=== PATIENT | male | born 1935 | race Caucasian/White ===

== ENCOUNTER 2016-08-21 19:45 | Emergency (ER) | payer MEDICARE ==
[~2016-08-21] VITALS: Ht 182.9 cm; Wt 95.5 kg
[~2016-08-21 19:45] MED LIST: NAPR220C11 PO; TRAV5DRO BOTH_EYES
[2016-08-21 19:47] VITALS: BP 150/85; PULSE 83; RESP 16; O2SAT 100
--- NOTE | 2016-08-21 20:50 | ED.REPORT ---
HPI-General Illness Date of Service Aug 21, 2016 ED Provider: Dr. Mark Morris MD An 80 year old male with a previous history of prostate cancer s/p prostatectomy and kidney stones presents to the ED with multiple medical complaints. The patient's reports that he has been experiencing nausea, forgetfulness, abdominal pain, general malaise, chest/shoulder discomfort and dysuria that began a few weeks ago. The discomfort inbetween the patient's shoulder's radiates to his flank. Patient also reports dry heaving but denies any episodes of vomiting. He is currently taking Doxycycline for his dysuria. Nursing Notes Stated Complaint: CHEST PAIN/ SOB Chief Complaint: General Complaint Nursing Notes Reviewed: Yes Allergies: Coded Allergies: Penicillins (Verified Allergy, Severe, RASH (AMOXICILLIN), 03/21/16) Sulfa (Sulfonamide Antibiotics) (Verified Allergy, Severe, rash, 03/21/16) clindamycin (Verified Allergy, Severe, rash, 03/21/16) dexamethasone (Verified Allergy, Severe, RASH, 03/21/16) risperidone (Verified Allergy, Severe, chest pain and anxiety, 03/21/16) NSAIDS (Non-Steroidal Anti-Inflamma (Unverified Allergy, Unknown, unknown (opth/otic soln), 03/21/16) ciprofloxacin (Verified Allergy, Unknown, UNKNOWN, 03/21/16) meperidine (Verified Allergy, Unknown, UNKNOWN, 03/21/16) morphine (Verified Allergy, Unknown, UNKNOWN, 03/21/16) Scheduled Travoprost (Travatan Z) 5 Ml Drops 1-2 GTTS BOTH_EYES DAILY Scheduled PRN Naproxen Sodium (Aleve) 220 Mg Capsule 2 CAP PO DAILY PRN PRN PRN General Time Seen by MD: 20:50 Chief Complaint Multip medical complaints Hx Obtained From: Patient, Spouse Arrived By: Walk-in Sudden in Onset?: No Onset Occurred: 21 - 23 hours ago Symptom Duration: Since onset Location: : Shoulder left: Shoulder right Quality: Painful Radiation: : Back (Flank ) Severity: Current: No pain currently Severity: Maximum: Mild Associated with: Reports: Abdominal pain, Chest pain (chest discomfort ), Nausea, Denies: Vomiting Pertinent Negative: Pt denies other symptoms Recent Healthcare: No recent doctor visit, No recent hospitalization Past Medical History Past Medical History Prostate cancer s/p prostatectomy Urinary incontinence PE 2003 Kidney stones Past Surgical History Bilat CTR Right total shoulder replacement Bladder stone removal Reports: Cholecystectomy, Prostatectomy Family History Noncontributory Smoking History Former Smoker Social History Alcohol Use: 1-3 per day Drug Use: Denies drug use Other Social History: Smokeless tobacco, Good social support, , Local resident Ambulatory Status Independent Review of Systems Full Review of Systems Constitutional: Reports: Malaise, Denies: Chills, Fever Respiratory: Denies: Shortness of breath Cardiovascular: Reports: Chest pain (Chest discomfort ) GI: Reports: Abdominal pain, Nausea, Denies: Vomiting Male: Reports Flank pain (Pain that radiates to flank) Musculoskeletal: Reports: Joint pain (Bilateral shoulder discomfort ) Neurologic: Denies: Change LOC Complete sys rev & neg: except as marked. Physical Exam Vital Signs Vital Signs Date Time Temp Pulse Resp B/P Pulse Ox O2 Delivery O2 Flow Rate FiO2 08/22/16 00:11 58 18 118/59 95 Room Air 08/21/16 19:47 36.4 83 16 150/85 100 Room Air Initial VS: Reviewed Neck: Supple, Non-tender, Full range of motion Extremities: Vascular intact, Neuro intact, No swelling, No tenderness Skin: Warm, Dry, No cyanosis Neurologic: Alert, Oriented, Nonfocal Psychiatric: Mood/affect normal, Behavior normal, Normal thought content General/Constitutional: Awake, Alert Head / Eyes: Atraumatic, Normocephalic ENT: Atraumatic, Airway patent Mouth: Positive: Mucous membranes dry Respiratory / Chest: Atraumatic, Breath sounds NL, Breath sounds = bilat Cardiovascular: Heart rate NL, Regular rhythm, Heart sounds NL Abdomen: Atraumatic, Soft, Non-tender ABDOMEN: Obese Interpretation & Diagnostics Lab Results Interpretation Result Diagram: 08/21/16213908/21/162139 Test 08/21/16 21:40 White Blood Count 6.7th/mm3 (3.8-10.1) Red Blood Count 4.33mil/mm3 (4.40-5.80) Hemoglobin 12.0g/dL (13.8-17.2) Hematocrit 36.0% (41.0-50.0) Mean Corpuscular Volume 83.1fL (81-100) Mean Corpuscular Hemoglobin 27.7pg (27.0-35.0) Mean Corpuscular Hemoglobin Concent 33.3% (32.0-37.0) Red Cell Distribution Width 13.8% (12.3-15.4) Platelet Count 349bil/L (150-400) Neutrophils (%) (Auto) 79.4% (40-74) Lymphocytes (%) (Auto) 12.8% (14-46) Monocytes (%) (Auto) 5.2% (4-12) Eosinophils (%) (Auto) 1.9% (0-5) Basophils (%) (Auto) 0.6% (0-3) Prothrombin Time 10.4sec (8.1-12.5) Prothromb Time International Ratio 0.97ratio Activated Partial Thromboplast Time 26.2sec (22.8-33.0) Sodium Level 137mEq/L (134-144) Potassium Level 4.3mEq/L (3.5-5.2) Chloride Level 99mEq/L (97-108) Carbon Dioxide Level 25mmol/L (18-29) Blood Urea Nitrogen 14mg/dL (8-27) Creatinine 0.87mg/dL (0.76-1.27) Estimat Glomerular Filtration Rate 90mL/min (>59) Glucose Level 108mg/dL (60-99) Calcium Level 9.1mg/dL (8.5-10.1) Magnesium Level 1.9mg/dL (1.6-2.6) Total Bilirubin 0.2mg/dL (0.0-1.2) Aspartate Amino Transf (AST/SGOT) 11U/L (0-50) Alanine Aminotransferase (ALT/SGPT) 8U/L (0-44) Alkaline Phosphatase 90U/L (25-160) Troponin T 0.010ug/L (0.0-0.011) Pro-B-Type Natriuretic Peptide 135.6pg/mL (0-486) Total Protein 6.7g/dL (6.4-8.4) Albumin 3.8g/dL (3.4-5.0) Lipase 24U/L (13-60) ECG Interpretation ECG Interpretation: Sinus Rhythm Rate 72 Time: 21:52 Interpreted by: ED physician Normal ECG Interpretation: No change from prior ECGs (03/14/2014) X-Ray Chest Interpretation Chest Xray Interpretation: IMPRESSION: No acute pulmonary process. Dictated by: Jany Shi M.D. on 08/21/2016 at 21:59 Interpretation / Wet Read by: Interpret - Radiologist CT Abd / Pelvis Interpretation IMPRESSION: Mild urinary bladder wall thickening. Cystitis cannot be excluded. Status post prostatectomy. Diverticulosis without diverticulitis. Cholecystecomy. Study type: Abdominal CT IV contrast Interpretation / Wet Read by: Interpret - Radiologist ( ) Re-Eval/Medical Decision Med Decision/Clinical Course 80-year-old with dementia and prostate cancer presents with vague symptoms including of nausea that resolved some lower abdominal discomfort in the right lower quadrant that still seems to be present. His difficult historian due to his dementia. His exam is benign and labs are basically unremarkable. His CT scan shows no significant pathology either. He has thickening of his bladder wall with chronic UTI and no other findings. He is discharged this point in stable condition. EKG was not suggestive of ischemia. No other immediate concerns for dangerous pathology. Time of Eval: 23:55 Patient Status: Condition improved Re-Evaluation/Progress Note: Patient is rechecked. He is informed of his lab results, X-ray results, CT results and diagnosis. All questions are addressed. He understands and agrees with the treatment plan. Counseled Regarding: Diagnosis, Lab results, Need for follow-up, When/why to return to ED Discharge & Departure Primary Impression: Abdominal pain Abdominal location: unspecified location Qualified Code: R10.9 - Unspecified abdominal pain Additional Impression: Nausea Disposition: Home Discharge Condition All VS Reviewed: Yes Condition: Stable Patient Instructions: Acute Abdominal Pain (ED) Additional Instructions: We do not find a dangerous cause for your abdominal pain. I believe it is related to your ongoing urinary issues. The nausea may well up and caused by the doxycycline. Be sure you have plenty of food and fluid in your stomach, and then wash the tablets down thoroughly, to avoid stomach upset. Follow-up with your doctor in the office. Return if any immediate issues. Referrals: Andrews Nieves MD (PCP) Jessi Attestation Portions of this note were transcribed by Beckie Palacio. I, Dr. Morris personally performed the history, physical exam and medical decision-making; I reviewed and confirmed the accuracy of the information in the transcribed note. Signed by: Jessi Boswell, 08/22/16 0000. copies to: Andrews Nieves MD, Christopher W MD Aug 21, 2016 20:50 BECKIE PALACIO Aug 21, 2016 21:20
[2016-08-21] MEDS ORDERED: Ondansetron 2 mg/mL 2 mL Inj IVPUSH ONE (21:15)
[2016-08-21] MEDS ORDERED: 0.9% Sodium Chloride 1,000 ML IV ONE (21:15)
[2016-08-21 21:54] LABS: BASOPHILS % (AUTO) 0.6 % (0-3); EOSINOPHILS % (AUTO) 1.9 % (0-5); MONOCYTES % (AUTO) 5.2 % (4-12); Mean Corpuscular Hemoglobin 27.7 pg (27.0-35.0); Mean Corpuscular Volume 83.1 fL (81-100); NEUTROPHILS % (AUTO) 79.4 % (40-74); Platelet Count 349 bil/L (150-400)
--- NOTE | 2016-08-21 22:02 | DRSVH ---
PROCEDURE: X-RAY CHEST ONE VIEW, PORTABLE ([id number]) INDICATIONS: nausea TECHNIQUE: One view of the chest was acquired. COMPARISON: None. FINDINGS: Surgical changes and devices: Right humeral arthroplasty. Lungs and pleura: No pleural effusions or pneumothorax. Lungs are clear. Mediastinum: Mediastinal contours appear normal. Heart size is normal. Bones and chest wall: No suspicious bony lesions. Overlying soft tissues appear unremarkable. IMPRESSION: No acute pulmonary process. Dictated by: Jany Shi M.D. on 08/21/2016 at 21:59 Approved by: Jany Shi M.D. on 08/21/2016 at 22:00
[2016-08-21 22:13] LABS: INR 0.97 ratio
[2016-08-21 22:17] LABS: TROPONIN T 0.01 ug/L (0.0-0.011)
[2016-08-21 22:28] LABS: Magnesium 1.9 mg/dL (1.6-2.6)
[2016-08-22 00:11] VITALS: BP 118/59; PULSE 58; RESP 18; O2SAT 95
--- NOTE | 2016-08-22 08:08 | DRSVH ---
PROCEDURE: CT ABDOMEN AND PELVIS WITH CONTRAST ([id number]) INDICATIONS: rt flank pain, chronic uti TECHNIQUE: After the administration of intravenous contrast, 5 mm thick sections acquired from the diaphragm to the symphysis. 5 mm coronal and sagittal reformats were acquired. For radiation dose reduction, the following was used: automated exposure control, adjustment of mA and/or kV according to patient siz e. COMPARISON: [facility], CT, KUB - CT ([facility]), 02/14/2014, 13:13. [facility], C T, ABD/PELVIS W/CON (PN), 03/04/2013, 16:13. FINDINGS: Image quality: Excellent. ABDOMEN: Lung bases: Lung bases are clear. Heart size is normal. Solid organs: Liver and spleen are normal in size and enhancement. Gallbladder has been removed. B iliary system is non dilated. Pancreas enhances normally. No adrenal nodules. Kidneys demonstrate normal size and enhancement, without hydronephrosis. Renal cysts are noted. Peritoneum and bowel: Bowel loops demonstrate normal wall thickness and caliber. No free fluid or a ir. Colonic diverticula are present without associated inflammatory change. Nodes and vessels: No retroperitoneal or mesenteric adenopathy by size criteria. Aorta and inferior vena cava are normal in size. Atherosclerotic calcifications are present throughout the aorta cours e. Miscellaneous: No ventral hernias. PELVIS: Genitourinary: The bladder appears incompletely distended and thickened. Overall appearance is somewh at distorted and only partially visualized secondary to significant metallic streak artifact from adj acent surgical clips. Miscellaneous: No inguinal hernias or adenopathy. Bones: No suspicious bony lesions. No vertebral body compression fractures. IMPRESSION: 1. The bladder appears thickened, which could be secondary to incomplete distention. Recommend correl ation to potential UTI. It is noted the bladder is poorly visualized secondary to streak artifact as above. Dictated by: Jany Shi M.D. on 08/22/2016 at 8:03 Approved by: Jany Shi M.D. on 08/22/2016 at 8:07
[2016-11-11] MEDS ORDERED: MIRA25TA PO (16:39)
[2016-11-11] MEDS ORDERED: ALPR0.5T PO (16:39)
[2016-11-11] MEDS ORDERED: CITA20TA PO (16:39)
[2016-11-11] MEDS ORDERED: BETA15OI2 TOP (16:39)
[2016-11-11] MEDS ORDERED: BRIM5DRO OP (16:39)
[2016-11-11] MEDS ORDERED: RANI150T11 PO (16:39)
[2016-11-11] MEDS ORDERED: HYDR-3090 PO (16:39)
== END 2016-08-21 23:58 | disposition home or self-care (01) ==
LOC: SED 19:45
DX: R10.31 Right lower quadrant pain (principal); R11.0 Nausea; R07.89 Other chest pain; M25.511 Pain in right shoulder; M25.512 Pain in left shoulder; R53.83 Other fatigue; R33.0 Drug induced retention of urine; R41.3 Other amnesia; Z96.611 Presence of right artificial shoulder joint; Z90.49 Acquired absence of other specified parts of digestive tract; Z90.79 Acquired absence of other genital organ(s); Z87.891 Personal history of nicotine dependence; Z88.0 Allergy status to penicillin; Z88.1 Allergy status to other antibiotic agents; Z88.2 Allergy status to sulfonamides; Z88.5 Allergy status to narcotic agent; Z88.8 Allergy status to other drugs, medicaments and biological substances
CPT/HCPCS: 36415; 71010; 74177; 80053; 83690; 83735; 83880; 84484; 85025; 85610; 85730; 93005; 96361; 96374; 99285; G0463; J2405; J7030; Q9967

== ENCOUNTER 2016-11-16 05:26 | Day surgery (SDC) | payer MEDICARE ==
[~2016-11-16] VITALS: Ht 182.9 cm; Wt 91.0 kg
[~2016-11-16 05:26] MED LIST changes: +ALPR0.5T PO; +BETA15OI2 TOP; +BRIM5DRO OP; +CITA20TA PO; +HYDR-3090 PO; +Lactated Ringer's 1,000 ML IV ONE; +MIRA25TA PO; -NAPR220C11 PO; +RANI150T11 PO; -TRAV5DRO BOTH_EYES
[2016-11-16] MEDS ORDERED: EPHEDrine/NS 5 mg/mL 5 mL Syringe ONE (05:27)
[2016-11-16] MEDS ORDERED: fentaNYL-PF 50 mCg/mL 2 mL Inj ONE (05:27)
[2016-11-16] MEDS ORDERED: Propofol 10,000 mCg/mL 20 mL Inj ONE (05:27)
[2016-11-16] MEDS ORDERED: OMEP20TA24 PO (05:52)
[2016-11-16 06:00] VITALS: BP 122/64; PULSE 57; RESP 18; O2SAT 97
[2016-11-16] MEDS ORDERED: Bupivacaine-MPF 0.5% 30 mL Inj INFILTRATE ONE (07:37)
[2016-11-16] MEDS ORDERED: HYDROcodone-APAP 5-325 mg Tablet PO PRN (08:15)
[2016-11-16 08:19] VITALS: BP 103/57; PULSE 63; RESP 18; O2SAT 95
[2016-11-16 08:47] VITALS: BP 107/57; PULSE 59; RESP 18; O2SAT 94
--- NOTE | 2016-11-16 09:21 | OP ---
[address] [address] OPERATIVE REPORT PATIENT: JAZZ TIERNEY : 1935 MR#: [id number] ADMIT: 11/16/2016 JOB ID: [id number] DATE OF SURGERY: 11/16/2016 PREOPERATIVE DIAGNOSIS(ES): Myopathy. POSTOPERATIVE DIAGNOSIS(ES): Myopathy. PROCEDURE: Right quadriceps muscle biopsy. SURGEON: Manas Asher MD [id number] INTERFACE DEVELOPER: Stanford Watson PA-C INDICATIONS: An 81-year-old gentleman who has clinically been diagnosed with a myopathy, and was referred by Dr. Femi Steve for a right quadriceps muscle biopsy. FINDINGS: Grossly, his muscle appeared normal. It was secured to a tongue blade before cutting and packed in ice, and shipped as a fresh specimen to the [facility]. DESCRIPTION OF PROCEDURE: At the beginning and end of the operation, the SCOAP checklist was completed. He received deep sedation. Using ChloraPrep, his right anterior thigh was prepped and draped in the usual fashion. He received local anesthesia with 1% lidocaine, 0.5% bupivacaine. A vertical incision was made. Dissection was carried down through subcutaneous tissue in the anterior fascia with cautery. The lateral edge of the vastus medialis was identified. It was bluntly mobilized. A portion of the tongue blade was positioned deep to the muscle and, using 2-0 silk, it was securely tied to the tongue blade and then sharply divided. Hemostasis was obtained with cautery. The wound was closed with running subcutaneous 3-0 Vicryl, deep dermal 3-0 Vicryl and subcuticular 4-0 Vicryl. Dermabond was applied. Estimated blood loss less than 5 cc. No apparent complications. The final sponge, needle, and instrument counts were announced as correct, and the specimen was transported on ice as a fresh specimen directly to the [facility]. Critical assistance was provided by Stanford Watson PA-C.
--- NOTE | 2016-11-16 09:37 | PCM.ANEP1 ---
Post Anesthesia Phase 1 PACU Phase 1 Assessment Date of Service: November 16, 2016 (0700) Vital Signs Vital Signs Date Time Temp Pulse Resp B/P Pulse Ox O2 Delivery O2 Flow Rate FiO2 11/16/16 08:47 36.7 59 18 107/57 94 Room Air 11/16/16 08:19 36.7 63 18 103/57 95 Room Air 11/16/16 06:00 36.0 57 18 122/64 97 Room Air Anesthetic Administered: MAC Level of Alertness: Awake, talking MORRISON's with Equal Strength: Yes Pain: No Nausea or Vomiting: No Cardiovascular Function and Hy: Yes Oxygen Delivery: Room Air Lungs: Normal Air Movement Dermatome Level: Full Sensation Complications: No Follow up Care: No Kleber Lorenz MD November 16, 2016 09:37
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
== END 2016-11-16 23:59 | disposition home or self-care (01) ==
LOC: SAS 05:26
PROVIDERS: ATTEND Surgery
DX: M62.551 Muscle wasting and atrophy, not elsewhere classified, right thigh (principal); R53.1 Weakness; G60.8 Other hereditary and idiopathic neuropathies; Z86.12 Personal history of poliomyelitis; R63.4 Abnormal weight loss; G47.33 Obstructive sleep apnea (adult) (pediatric); F17.210 Nicotine dependence, cigarettes, uncomplicated
CPT/HCPCS: 20205; J3010; J7120